=== PATIENT | female | born 1995 | race Caucasian/White ===

== ENCOUNTER → 2021-05-08 | Outpatient (CLI) | payer BC, OTHER | LOC: SJCVCIMAG 10:08 | PROVIDERS: ATTEND Internal Medicine | DX: I07.1 Rheumatic tricuspid insufficiency (principal); R55 Syncope and collapse ==

== ENCOUNTER → 2021-05-31 | Outpatient (CLI) | payer BC, OTHER | LOC: ULTRA 09:36 | PROVIDERS: ATTEND Nurse Practitioner | DX: E04.2 Nontoxic multinodular goiter (principal); E06.3 Autoimmune thyroiditis; R55 Syncope and collapse ==